=== PATIENT | male | born 1945 | race Caucasian/White ===

== ENCOUNTER → 2016-11-08 | Outpatient (CLI) | payer OTHER ==
[~2016-11-08] VITALS: Ht 177.8 cm; Wt 86.3 kg
[~2016-11-08] MED LIST: AMLODIPINE BES2.5 MG; ASPIRIN81 M2 PO; LEVOTHYROXINE100 MCG PO; LOSARTAN POTASS50 MG PO; LOVENOX SUBQ; METOPROLOL SUCC ER PO; NITROGLYCERIN0.4 MG SL; PROTONIX PO; SENNA8.6 M1 PO
--- NOTE | ~2016-11-08 | CT134 ---
[facility] A Service of [facility] & [facility] RADIOLOGY TEXT RESULTS PATIENT: FRAN KHALIL LOCATION: [facility] : 43 UNIT #: [id number] AGE: [address]: Jered Odell MD SEX: M ORDER DR: [id number] [facility] [address] [place], [place] [address] [id number] O MR#: [id number] Acc #: [id number] NAME: FRAN KHALIL : 1945 SEX: M STUDY DATE/TIME: 11/08/2016 9:06 UNIT: [facility] ROOM: STUDY DESCRIPTION: CT Guide Attending Physician: Jered Odell M.D. Referring Physician: Jered Odell M.D. Ordering Physician: Jered Odell M.D. Primary Care Physician: Primary Care Physician No MEDICAL IMAGING REPORT This report is preliminary unless electronic signature is present EXAM CT guided liver tumor fiducial marking study. 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 Markers placed to guide radiation therapy. TECHNIQUE The procedure was explained to the patient including risks, benefits and complications. Informed consent was obtained and a formal time-out procedure was utilized. Initial CT scans were performed in the tumor and the right hepatic lobe was localized. Permanent CT images were recorded. This CT exam was performed with one or more of the following radiation dose reduction techniques: automatic control, adjustment of mA and/or kV according to patient size, and iterative reconstruction. Conscious sedation was employed with intravenous Versed and Fentanyl that was administered by nursing who was present and monitoring the patient during the examination. Total physician face time for conscious sedation 30 minutes. Using sterile technique and following local anesthesia with 1% Xylocaine, 2 gold fiducial coil markers were placed, 1 just anterior to the mass and 1 just posterior to the mass. Coil positioning appears satisfactory. The patient tolerated the procedure well. He will kept on bedrest for 4 hours following the procedure with close monitoring of vital signs. IMPRESSION Technically successful placement of fiducial markers anterior and posterior to the patient's right-sided liver mass prior to radiation therapy for radiation therapy planning and guidance. Dictated by... Tremaine Levine M.D. [facility]. [facility] A Service of [facility] & [facility] RADIOLOGY TEXT RESULTS PATIENT: FRAN KHALIL LOCATION: [facility] #: [id number] : 43 UNIT #: [id number] AGE: [address]: Jered Odell MD SEX: M ORDER DR: THIS IS AN ELECTRONICALLY VERIFIED REPORT Tremaine Levine M.D. at 11/09/2016 11:30 AM KHUSHI/carolyn TD: 11/08/2016 21:56 JOB #: [id number] MEDICAL IMAGING REPORT Page 1 of 1 COPY
[2016-11-08 07:58] LABS: HEMATOCRIT 35.5 % (38.0-50.0); HEMOGLOBIN 12.1 gm/dL (13.0-16.0); MEAN CORPUSCULAR HEMOGLOBIN 36.5 PG (28-34); MEAN CORPUSCULAR HGB CONC 34.1 g/dL (30-36); RED BLOOD COUNT 3.32 X10e (3.90-5.60); RED CELL DISTRIBUTION WIDTH 16.3 % (11.0-15.5); WHITE BLOOD COUNT 6.1 X10e3 (4.0-10.5)
[2016-11-08 08:07] LABS: PARTIAL THROMBOPLASTIN TIME 25.4 SECONDS (23.5-31.3); PROTHROMBIN TIME (PATIENT) 10.6 SECONDS (10.0-11.7)
== END | disposition home or self-care (01) ==
LOC: CIVR 06:54
PROVIDERS: Radiology Radiation Oncology
DX: C78.7 Secondary malignant neoplasm of liver and intrahepatic bile duct (principal); C80.1 Malignant (primary) neoplasm, unspecified
CPT/HCPCS: 76140; 77012; 85027; 85610; 85730; 99152; 99153; A4648; J0690; J1642; J2250; J3010